=== PATIENT | male | born 1980 | race Caucasian/White ===

== ENCOUNTER 2018-03-21 19:40 | Emergency (ER) | payer SELFPAY ==
[2018-03-21] MEDS ORDERED: ASPIRIN 81 MG CHEWABLE TAB PO ONE (19:52)
--- NOTE | 2018-03-21 19:54 | EDPHY ---
H & P Stated Complaint: L sided anterior chest pain x 1 month, intermittent, dull and sharp. Time Seen by Provider: 03/21/18 19:48 HPI/ROS: CHIEF COMPLAINT: Chest pain HISTORY OF PRESENT ILLNESS: The patient is a 37-year-old man who comes to the emergency department complaining of intermittent spasming chest pain in his left pectoralis region. He states that this has been ongoing for the last month. Each episode is very brief but he has several each day. He assumed that it was a pulled muscle but it does not seem to be getting better. Does not gotten worse. Is not worsened by exertion. No shortness of breath. No diaphoresis. No lightheadedness. Not worsened by exertion or certain movements. Not worsened by food. No abdominal pain, no nausea vomiting or diarrhea. No cough sore throat runny nose etc. Severity: Mild Modifying factors: Brief and resolve spontaneously REVIEW OF SYSTEMS: Constitutional: denies: chills, fever, recent illness, recent injury EENTM: denies: blurred vision, double vision, nose congestion Respiratory: denies: cough, shortness of breath Cardiac: See HPI denies: irregular heart rate, lightheadedness, palpitations Gastrointestinal/Abdominal: denies: abdominal pain, diarrhea, nausea, vomiting, blood streaked stools Genitourinary: denies: dysuria, frequency, hematuria, pain Musculoskeletal: See HPI Skin: denies: lesions, rash, jaundice, bruising Neurological: denies: headache, numbness, paresthesia, tingling, dizziness, weakness Hematologic/Lymphatic: denies: blood clots, easy bleeding, easy bruising Immunologic/allergic: denies: HIV/AIDS, transplant 10 systems reviewed and negative except as noted EXAM: GENERAL: Well-appearing, well-nourished and in no acute distress. HEAD: Atraumatic, normocephalic. EYES: Pupils equal round and reactive to light, extraocular movements intact, sclera anicteric, conjunctiva are normal. ENT: TMs normal, nares patent, oropharynx clear without exudates. Moist mucous membranes. NECK: Normal range of motion, supple without lymphadenopathy or JVD. LUNGS: Breath sounds clear to auscultation bilaterally and equal. No wheezes rales or rhonchi. HEART: Regular rate and rhythm without murmurs, rubs or gallops. ABDOMEN: Soft, nontender, normoactive bowel sounds. No guarding, no rebound. No masses appreciated. BACK: No CVA tenderness, no spinal tenderness, step-offs or deformities EXTREMITIES: Normal range of motion, no pitting or edema. No clubbing or cyanosis. NEUROLOGICAL: Cranial nerves II through XII grossly intact. Normal speech, normal gait. 5/5 strength, normal movement in all extremities, normal sensation , normal reflexes PSYCH: Normal mood, normal affect. SKIN: Warm, dry, normal turgor, no visible rashes or lesions. Source: Patient Exam Limitations: No limitations - Personal History Current Tetanus/Diphtheria Vaccine: Yes - Medical/Surgical History Hx Asthma: No Hx Chronic Respiratory Disease: No Hx Diabetes: No Hx Cardiac Disease: Yes Hx Renal Disease: No Hx Cirrhosis: No Hx Alcoholism: No Hx HIV/AIDS: No Hx Splenectomy or Spleen Trauma: No Other PMH: mild scoliosis, HTN - Family History Significant Family History: No pertinent family hx - Social History Smoking Status: Never smoked Alcohol Use: Sober Drug Use: None Constitutional: Initial Vital Signs Temperature (C) 36.6 C 03/21/18 19:48 Heart Rate 64 03/21/18 19:48 Respiratory Rate 16 03/21/18 19:48 Blood Pressure 154/95 H 03/21/18 19:48 O2 Sat (%) 96 03/21/18 19:48 O2 Delivery Mode Room Air Allergies/Adverse Reactions: No Known Allergies Allergy (Unverified 03/21/18 19:48) Home Medications: Medication Instructions Recorded Lisinopril 03/21/18 Terbinafine HCl [LamISIL AT Cream 03/21/18 (*)] Medical Decision Making - Diagnostics EKG Interpretation: An EKG obtained and was read and documented in trace view. Please see trace view for full reading and report. Sinus rhythm, no acute ischemic changes Imaging: Discussed imaging studies w/ firearms specialist Radiologist ED Course/Re-evaluation: 9:00 p.m. the patient's lab work and EKG and x-ray are all reassuring. He is asymptomatic here. No abnormalities seen on monitoring. This is clinically seems more like muscle spasming of his chest wall. We discussed possible causes of this. We discussed follow-up as well as indications for returning to the emergency department. The patient is happy with this and declines further workup or testing at this time. Differential Diagnosis: Partial list of the Differential diagnosis considered include but were not limited to; chest wall pain, pleurisy, pneumothorax, trauma, arrhythmia and although unlikely based on the history and physical exam, I also considered acute coronary disease, dissection, PE. I discussed these differential diagnoses and the plan with the patient as well as the usual and expected course. The patient understands that the diagnosis is provisional and that in medicine we are not always correct and that further workup is often warranted. Usual and customary warnings were given. All of the patient's questions were answered. The patient was instructed to return to the emergency department should the symptoms at all worsen or return, otherwise to followup with the physician as we discussed. - Data Points Medications Given: Discontinued Medications Aspirin (Aspirin) 324 mg PO EDNOW ONE Stop: 03/21/18 19:53 Last Admin: 03/21/18 20:13 Dose: 324 mg Point of Care Test Results: CBC CBC Collection Date 03/21/18 CBC Collection Time 20:05 WBC 6.3 RBC 4.77 HGB 15.9 HCT 44.8 PLT 145 Neut # 4.1 Neut 65.7 LYMPH # 1.8 LYMPH 28.1 Other WBC # 0.4 Other WBC 6.2 MCV 93.9 Chemistry 03/21/18 03/21/18 20:10 20:08 POC Sodium 147 mEq/L H mEq/L (135-145) POC Potassium 3.7 mEq/L mEq/L (3.3-5.0) POC Chloride 105.0 mEq/L mEq/L (97-110) POC Total CO2 24 mEq/L mEq/L (22-31) POC BUN 14 mg/dL mg/dL (7-23) POC Creatinine 1.1 mg/dL mg/dL (0.7-1.3) POC Glucose 89 mg/dL mg/dL (70-100) POC Calcium 10.2 mg/dL mg/dL (8.5-10.4) POC Troponin I 0.01 ng/mL ng/mL (0.00-0.08) D-Dimer D-Dimer Collection Date 03/21/18 D-Dimer Collection Time 20:05 D-Dimer (ng/ml) <100 Departure - Departure Disposition: Home, Routine, Self-Care Clinical Impression: Chest wall pain Condition: Fair Instructions: Chest Wall Pain (ED) Referrals: NONE *PRIMARY CARE P,. [Primary Care Provider] - As per Instructions Joann Altamirano MD [Medical Doctor] - As per Instructions
--- NOTE | 2018-03-21 20:03 | CPEKG ---
Test Reason : OPEN Blood Pressure : / mmHG Vent. Rate : 059 BPM Atrial Rate : 059 BPM P-R Int : 145 ms QRS Dur : 116 ms QT Int : 400 ms P-R-T Axes : 061 -13 020 degrees QTc Int : 397 ms Sinus rhythm Nonspecific intraventricular conduction delay Confirmed by Brennen Licona ([id number]) on 03/21/2018 8:02:33 PM Referred By: Confirmed By:Brennen Licona
[2018-03-21 21:08] VITALS: BP 139/91
== END 2018-03-21 21:15 | disposition home or self-care (01) ==
LOC: CED 19:40
DX: R07.89 Other chest pain (principal)
CPT/HCPCS: 71046-PO; 80048-PO; 84484-PO